=== PATIENT | female | born 1990 | race Caucasian/White ===

== ENCOUNTER 2018-12-10 12:23 | Emergency (ER) | payer SELFPAY ==
[~2018-12-10] VITALS: Wt 80.2 kg
[2018-12-10 12:30] VITALS: BP 122/58; PULSE 90; RESP 17
== END 2018-12-10 14:54 | disposition left against medical advice (07) ==
LOC: FTE 12:23
DX: Z53.21 Procedure and treatment not carried out due to patient leaving prior to being seen by health care provider (principal)